=== PATIENT | male | born 1965 | race Caucasian/White ===

== ENCOUNTER 2017-03-06 11:07 | Emergency (ER) | payer MEDICARE ==
[2017-03-06] MEDS: ALBUTEROL/IPRATROPIUM 1 VIAL SOL INH ONE (11:37)
[2017-03-06 11:41] VITALS: TEMP 97.6
[2017-03-06] MEDS ORDERED: ALBUTEROL/IPRATROPIUM 1 VIAL SOL ONE (11:49)
[2017-03-06] MEDS ORDERED: SOLUMEDROL 125 MG/2 ML 125 MG/2 ML PDS ONE (11:49)
[2017-03-06] MEDS: SOLUMEDROL 125 MG/2 ML 125 MG/2 ML PDS IM ONE (11:50)
[2017-03-06 11:54] VITALS: O2SAT 100
[2017-03-06 14:26] VITALS: BP 127/78; PULSE 75; RESP 17
== END 2017-03-06 12:10 | disposition home or self-care (01) | DRG 192 ==
LOC: ED 11:07
DX: J44.1 Chronic obstructive pulmonary disease with (acute) exacerbation (principal)
CPT/HCPCS: 96372; 99283; 99284; J2930; J7620

== ENCOUNTER 2017-08-03 15:38 | Emergency (ER) | payer MEDICARE ==
[2017-08-03] MEDS ORDERED: LIDOCAINE HCL 2% MPF SOL ONE (15:55)
[2017-08-03] MEDS ORDERED: TDAP VACCINE 0.5 ML SUS IM ONE ×2 (15:56→16:07)
[2017-08-03] MEDS ORDERED: LIDOCAINE HCL 2% MPF SOL SC ONE (15:56)
[2017-08-03 16:06] VITALS: TEMP 99.1
[2017-08-03] MEDS ORDERED: BACITRACIN 500 U/GM OIN TOP ONE ×2 (16:13→16:23)
[2017-08-03 16:35] VITALS: BP 115/74; PULSE 79; RESP 16; O2SAT 97
== END 2017-08-03 16:25 | disposition home or self-care (01) | DRG 566 ==
LOC: ED 15:38
DX: S66.021A Laceration of long flexor muscle, fascia and tendon of right thumb at wrist and hand level, initial encounter (principal); W27.8XXA Contact with other nonpowered hand tool, initial encounter
CPT/HCPCS: 12002; 90471; 90715; 99284; A6402